=== PATIENT | female | born 2000 | race Caucasian/White ===

== ENCOUNTER → 2023-05-05 09:41 | Outpatient (REF) | payer BC, SELFPAY | LOC: HWRAD 09:41 | PROVIDERS: ATTENDING PHYSICIAN Obstetrics & Gynecology Gynecology; FAMILY PHYSICIAN Internal Medicine | DX: N83.209 Unspecified ovarian cyst, unspecified side (principal) | CPT/HCPCS: 76830; 76856 ==

== ENCOUNTER → 2023-05-30 17:40 | Outpatient (REF) | payer BC, SELFPAY | LOC: MRI 3T 17:40 | PROVIDERS: ATTENDING PHYSICIAN Obstetrics & Gynecology Gynecology; FAMILY PHYSICIAN Internal Medicine | DX: N83.202 Unspecified ovarian cyst, left side (principal) | CPT/HCPCS: 72197; A9575 ==

== ENCOUNTER 2023-07-28 06:01 | Day surgery (SDC) | payer BC, SELFPAY ==
[2023-07-24 08:40] LABS: % Basophils 0.4 % (0-2); % Eosinophils 1.9 % (0-6); % Immature Granulocytes 0.3 % (0-0.5); % Lymphocytes 28.7 % (20.5-51.1); % Monocytes 7.6 % (1.7-9.3); % Neutrophils 61.1 % (42.2-75.2); Absolute Eosinophils 0.1 10^3/uL (0-0.7); Absolute Lymphocytes 2.1 10^3/uL (1.2-3.4); Absolute Monocytes 0.6 10^3/uL (0.1-0.6); Absolute Neutrophils 4.5 10^3/uL (1.4-6.5); Hematocrit 39.7 % (37.0-47.0); Hemoglobin 13.6 g/dL (12.0-16.0); Mean Corp Hgb Conc. 34.3 g/dL (33.0-37.0); Mean Corpuscular Hgb 31.7 pg (27.0-31.0); Mean Corpuscular Volume 92.5 fL (81.0-99.0); Mean Platelet Volume 11.2 fL (7.4-10.4); Nucleated Red Blood Cells % 0 %; Platelet Count 342 10^3/uL (130-400); Red Blood Cell Count 4.29 10^6/uL (4.20-5.40); White Blood Cell Count 7.4 10^3/uL (4.8-10.8)
[2023-07-24 09:06] LABS: HCG, Serum Qualitative Screen Negative
[2023-07-28] VITALS (10 sets, daily range): BP systolic 105–121; BP diastolic 59–79
--- NOTE | 2023-07-28 06:46 | PTCARENOTE ---
Patient states that she is having some minor chest pressure for the last 3 days. The pain is not worse with deep breaths. Patient states multiple times that it seems to be anxiety related. Anesthesia Dr. Stearns made aware. Will monitor patient.
[2023-07-28] MEDS: NORMOSOL-R 1000 IV (06:48)
[2023-07-28] MEDS: ZOFRAN 4 MG IV (10:40)
== END 2023-07-28 13:38 | disposition home or self-care (01) ==
LOC: SDS 06:01
PROVIDERS: ATTENDING PHYSICIAN Obstetrics & Gynecology Gynecology; FAMILY PHYSICIAN Internal Medicine
DX: N80.102 Endometriosis of left ovary, unspecified depth (principal)
CPT/HCPCS: 58662; 88305; 36415; 84703; 85025; 86850; 86900; 86901